=== PATIENT | male | born 1980 | race Caucasian/White ===

== ENCOUNTER 2021-02-20 06:36 | Day surgery (SDC) | payer BC ==
--- NOTE | 2021-02-16 16:08 | RAD REPORT ---
EXAM DESCRIPTION: RAD - Chest Pa And Lat (2 Views) - 02/16/2021 3:53 pm CLINICAL HISTORY: PRE-OP, pending trigger finger release procedure COMPARISON: None TECHNIQUE: Frontal and lateral views of the chest were obtained. FINDINGS: The lungs are clear. Heart size is normal and central vasculature is within normal limit s. No pleural effusion or pneumothorax seen. No acute bony finding noted. No aortic abnormality. IMPRESSION: No acute cardiopulmonary process.
[2021-02-16 16:11] LABS: Hematocrit 43.5 % (39.6-49.0); MPV 7.5 fL (7.6-11.3); RBC Red Blood Cell Count 4.98 M/uL (4.33-5.43)
[2021-02-16 16:12] LABS: Absolute Lymphocytes (CBC) 2.5 K/uL (0.7-4.9); Lymphocytes % 25.4 % (15.3-44.8)
[2021-02-16 16:15] LABS: Protime INR 1.03
--- NOTE | 2021-02-17 16:45 | EKG ---
Test Date: 2021-02-16 Test Time: 14:53:09 Iv Technician: DAISY MEASUREMENT RESULTS: Intervals: Rate: 78 [place]: 144 QRSD: 96 QT: 364 QTc: 414 [place]: P: 29 [place]: 144 QRS: 22 T: 27 INTERPRETIVE STATEMENTS: Normal sinus rhythm with sinus arrhythmia Normal ECG No previous ECG available for comparison Electronically Signed On 02-17-21 16:41:21 CDT by Naeem Roberson
[2021-02-20] MEDS ORDERED: Ringers Lactate 1,000 ML IV ONE (07:36)
[2021-02-20] MEDS ORDERED: CEFAZOLIN/SWI 2gm 2 GM/20 ML SYR ONE (07:36)
[2021-02-20] MEDS ORDERED: FENTANYL CITR 100 MCG/2 ML ONE (07:38)
[2021-02-20] MEDS ORDERED: MIDAZOLAM HCL 2 MG/2 ML INJ ONE (07:38)
[2021-02-20] MEDS ORDERED: LIDOCAINE 1% MPF 5 ML VIAL ONE (07:38)
[2021-02-20] MEDS ORDERED: propofoL 200 MG/20 ML VIAL IV ONE (07:38)
[2021-02-20] MEDS ORDERED: KETOROLAC 30 MG/ML INJ ONE (07:38)
[2021-02-20] MEDS ORDERED: CELECOXIB 100 MG CAPSULE ONE (08:12)
[2021-02-20] MEDS ORDERED: ACETAMINOPHEN 500 MG TAB ONE (08:13)
[2021-02-20] MEDS: BUPIVACAINE 0.25% PF 10 ML VIAL ONE ×2 (09:03→09:16)
--- NOTE | 2021-02-20 09:35 | P.BOP ---
Preoperative diagnosis: left trigger thumb Postoperative diagnosis: same Primary procedure: left thumb A1 mckayla release Ultrasonic Tester: NONE,NONE Estimated blood loss: 3 cc Specimen: none Findings: see dictation Anesthesia: General Complications: None Implants: none Fluids & blood products: per anesthesia record; TT: 20 mins @ 250 mmHg Transferred to: Recovery Room Condition: Good
[2021-02-20] MEDS ORDERED: GLYCOPYRROLATE 0.2 MG/ML SYR ONE (09:41)
[2021-02-20 11:53] VITALS: BP 120/94; TEMP 97.3; O2SAT 97
--- NOTE | 2021-02-21 05:35 | OP ---
Date of Procedure: 02/20/2021 Surgeon: Judd Rosario MD Preoperative Diagnosis: Left thumb, left trigger thumb. Postoperative Diagnosis: Left thumb, left trigger thumb. Procedure Performed: Left thumb A1 mckayla release. Anesthesia: General LMA. Fluids: Per Anesthesia record. Estimated Blood Loss: 3 cc. Complications: None. Implants: None. Tourniquet Time: 20 minutes at 250 mmHg. Indications For Procedure: Zeb is a 40-year-old male presented to my clinic with signs and sympto ms consistent with left trigger thumb. The patient failed conservative treatment, measures including corticosteroid injections and had significant pain that interfered with his activities of daily cris ng. I discussed with the patient at length risks and benefits associated with operative and nonopera tive treatment. He expressed understanding and elected to proceed with operative treatment. Description Of Procedure: After informed consent was obtained, the patient was identified in the pre operative holding area. The left thumb was marked. The patient was then brought back to the operati ng room, transferred to the operating table in supine fashion, placed under general LMA anesthesia. The left upper extremity was then prepped and draped in usual sterile fashion. A time-out was romelia hernández. Correct patient and procedure were confirmed and identified. The patient did receive his preop erative prophylactic antibiotics. The left upper extremity was exsanguinated using Esmarch and tourn iquet was inflated to 250 mmHg. Approximately, 1 cm horizontal incision was made over the thenar cre ase at the level of the MCP joint. Dissection was then taken down to the flexor tendon sheath, which was identified. Care was taken to protect the digital nerves and vessels at all times. A 15 blade was then used to open up the flexor tendon sheath. There was some tenosynovium fluid and that was exp ressed at that time and complete A1 mckayla was released in a proximal to distal fashion using a 15 bl suzanne as well as tenotomies. A small portion of the flexor tendon sheath was excised to minimize risk of recurrence. The wound was then irrigated thoroughly with normal saline. Skin was approximated us ing a 5-0 Prolene. Sterile dressings were applied. Tourniquet was let down. Patient was awakened a nd transferred to PACU in stable condition. Postoperative Plan: The patient will be nonweightbearing in his left upper extremity. He will work on range of motion exercises and follow up in 1 week for wound check and suture removal. SANTO/ADRIAN Voice ID: [id number] Report ID: [id number]
== END 2021-02-20 11:30 | disposition home or self-care (01) ==
LOC: OR 06:36
PROVIDERS: ATTEND Orthopaedic Surgery Sports Medicine
PROC: 0LN80ZZ Release Left Hand Tendon, Open Approach (ICD-10-PCS; principal; 2021-02-20 08:30)
DX: M65.312 Trigger thumb, left thumb (principal); M79.645 Pain in left finger(s); Z20.822 Contact with and (suspected) exposure to COVID-19
CPT/HCPCS: 36415; 71046; 80048; 85025; 85610; 85730; 93005; J0690; J2250; J2704; J3010; J7120; U0003